=== PATIENT | female | born 1970 | race Two or more races ===

== ENCOUNTER 2021-12-13 16:29 | Emergency (ER) | payer BC ==
[~2021-12-13] VITALS: Ht 157.5 cm; Wt 134.5 kg
[2021-12-13] MEDS ORDERED: FAMOTIDINE 20 MG/2 ML VIAL IVP ONE (20:00)
[2021-12-13] MEDS ORDERED: fentaNYL PF VIAL 100 MCG/2 ML VIAL IVP ONE (20:00)
[2021-12-13 20:12] LABS: BILIRUBIN,URINE NEGATIVE (NEG); CLARITY,URINE CLEAR; COLOR,URINE YELLOW; NITRITE,URINE NEGATIVE (NEG); PROTEIN,URINE NEGATIVE (NEG-TRACE); UROBILINOGEN,URINE 0.2 mg/dL (0.2 mg/dL)
[2021-12-13 20:12] LABS: BASO # 0.1 x10^3/uL (0.0-0.2); BASO % 1 % (0-3); EOS # 0.2 x10^3/uL (0.0-0.7); EOS % 2 % (0-3); HEMATOCRIT 44.7 % (36.0-47.0); HEMOGLOBIN 14.7 g/dL (12.0-15.5); LYMPH # 3.9 x10^3/uL (1.0-4.8); LYMPH % 41 % (24-48); MEAN CORPUSCULAR HEMOGLOBIN 29 pg (25-35); MEAN CORPUSCULAR HGB CONC 33 g/dL (31-37); MEAN CORPUSCULAR VOLUME 88 fL (79-100); MONO # 0.6 x10^3/uL (0.0-1.1); MONO % 7 % (0-9); NEUT # 4.7 x10^3/uL (1.8-7.7); NEUT % 50 % (31-73); PLATELET COUNT 336 x10^3/uL (140-400); RED BLOOD COUNT 5.07 x10^6/uL (3.50-5.40); RED CELL DISTRIBUTION WIDTH 14.2 % (11.5-14.5); WHITE BLOOD COUNT 9.5 x10^3/uL (4.0-11.0)
[2021-12-13 20:17] LABS: BACTERIA,URINE FEW /HPF (0-FEW); RBC,URINE 0 /HPF (0-2)
[2021-12-13 20:27] LABS: CREATININE 0.8 mg/dL (0.6-1.0); GFR 75.9; POTASSIUM 3.7 mmol/L (3.5-5.1)
[2021-12-13] MEDS ORDERED: IOHEXOL 300 MG/ML 100ML VIAL. IV ONE (20:30)
[2021-12-13 20:33] LABS: ALBUMIN 3.7 g/dL (3.4-5.0); ALBUMIN/GLOBULIN RATIO 0.7 (1.0-1.7); TOTAL BILIRUBIN 0.4 mg/dL (0.2-1.0); TOTAL PROTEIN 8.9 g/dL (6.4-8.2)
[2021-12-13] MEDS ORDERED: CONTRAST GIVEN. MC PRN (20:45)
--- NOTE | 2021-12-13 21:46 | RAD ---
EXAM: CT Abdomen and Pelvis with IV contrast CLINICAL HISTORY: Reason: abd pain / Spl. Instructions: OMNI 300 INJ. 75 MLS / History: . COMPARISON: none TECHNIQUE: Helical CT of the abdomen and pelvis was performed following the administration of intrave nous contrast. Axial, coronal and sagittal reformatted images were generated. PQRS compliance statement - One or more of the following individualized dose reduction techniques wer e utilized for this study: 1. Automated exposure control 2. Adjustment of the mA and/or kV according to patient size 3. Use of iterative reconstruction technique FINDINGS: Lower Chest: Visualized lung bases are clear. Heart size is normal. No pericardial effusion. Abdomen and Pelvis: There is mild hepatic steatosis. No focal hepatic abnormality. The gallbladder, spleen, adrenals, as are unremarkable. Kidneys are symmetric in size with normal parenchymal enhancement. No nephrolithias is or hydroureteronephrosis. Stomach is unremarkable. The small and large bowel is predominantly decompressed of obstruction or fo timothy inflammation. The appendix is normal. No free intra-abdominal air or free fluid. No pathologicall y enlarged abdominal or pelvic adenopathy. Vasculature is normal in course and caliber. Urinary bladder is decompressed precluding complete evaluation. Normal uterus is present. There is a hypoattenuating 2.8 cm cystic structure with increased attenuation peripherally. Attenuation of the h ypoattenuating component measures out of soft tissue. The left adnexa is unremarkable. No free pelvic fluid. There is a small to moderate-sized fat-containing umbilical hernia with periphe ral calcifications likely representing areas of prior fat necrosis. Bones: No acute or suspicious osseous abnormalities. IMPRESSION: 1. No definite acute abdominal or pelvic process. 2. 2.8 cm cystic structure in the right adnexa likely represents a dominant cyst or physiologic folli melanie. Recommend further evaluation with pelvic ultrasound. Electronically signed by: David Blanc DO (12/13/2021 9:44 PM) [facility]
--- NOTE | 2021-12-13 21:49 | PHYS DOC ---
Past Medical History Additional Past Medical Histor: abdominal hernia Past Surgical History: Smoking Status: Never Smoker Alcohol Use: None General Adult EDM: Chief Complaint: ABDOMINAL PAIN HPI: HPI: Patient is a 51 year old female presenting to the ED today complaining of a 4 out of 10 pain around her umbilical hernia, symptoms began 2 days ago but she states she has had the hernia for about 6 years. Patient denies any fever, nausea, vomiting or diarrhea. States the pain is only when she pushes on the hernia or when she touches her abdomen. Denies anything specifically relieving the pain. Review of Systems: Review of Systems: Constitutional: Denies fever or chills. [] Eyes: Denies change in visual acuity. [] HENT: Denies nasal congestion or sore throat. [] Respiratory: Denies cough or shortness of breath. [] Cardiovascular: Denies chest pain or edema. [] GI: Reports abdominal pain, denies nausea, vomiting, bloody stools or diarrhea. [] : Denies dysuria. [] Musculoskeletal: Denies back pain or joint pain. [] Integument: Denies rash. [] Neurologic: Denies headache, focal weakness or sensory changes. [] Psychiatric: Denies depression or anxiety. [] Heart Score: C/O Chest Pain: N/A Risk Factors: Risk Factors: DM, Current or recent (<one month) smoker, HTN, HLP, family history of CAD, obesity. Risk Scores: Score 0 - 3: 2.5% MACE over next 6 weeks - Discharge Home Score 4 - 6: 20.3% MACE over next 6 weeks - Admit for Clinical Observation Score 7 - 10: 72.7% MACE over next 6 weeks - Early Invasive Strategies Current Medications: Current Medications Medications (Trade) Dose Ordered Sig/Rodriguez Start Time Stop Time Status Last Admin Dose Admin Famotidine (Pepcid Vial) 20 mg 1X ONCE 12/13/21 20:00 12/13/21 20:40 DC 12/13/21 20:52 20 MG Fentanyl Citrate (Fentanyl 2ml Vial) 50 mcg 1X ONCE 12/13/21 20:00 12/13/21 20:40 DC 12/13/21 20:52 50 MCG Info (CONTRAST GIVEN -- Rx MONITORING) 1 each PRN DAILY PRN 12/13/21 20:45 12/15/21 20:44 Iohexol (Omnipaque 300 Mg/ml) 75 ml 1X ONCE 12/13/21 20:30 12/13/21 20:40 DC 12/13/21 20:42 75 ML Allergies: Allergies: Allergies Coded Allergies Type Severity Reaction Last Updated Verified No Known Drug Allergies 12/13/21 No Physical Exam: PE: Umbilical Constitutional: Well developed, well nourished, no acute distress, non-toxic appearance. [] HENT: Normocephalic, atraumatic, bilateral external ears normal, oropharynx moist, no oral exudates, nose normal. [] Eyes: PERRLA, EOMI, conjunctiva normal, no discharge. [] Neck: Normal range of motion, no tenderness, supple, no stridor. [] Cardiovascular:Heart rate regular rhythm, no murmur [] Lungs & Thorax: Bilateral breath sounds clear to auscultation [] Abdomen: Obese abdomen. Easily reducible umbilical hernia noted on exam with some tenderness during exam. Bowel sounds normal, soft, no right upper quadrant or right lower quadrant tenderness, no masses, no pulsatile masses. [] Skin: Warm, dry, no erythema, no rash. [] Back: No tenderness, no CVA tenderness. [] Extremities: No tenderness, no cyanosis, no clubbing, ROM intact, no edema. [] Neurologic: Alert and oriented X 3, normal motor function, normal sensory function, no focal deficits noted. [] Psychologic: Affect normal, judgement normal, mood normal. [] Current Patient Data: Labs: Laboratory Tests Test 12/13/21 19:52 12/13/21 20:02 White Blood Count 9.5 x10^3/uL (4.0-11.0) Red Blood Count 5.07 x10^6/uL (3.50-5.40) Hemoglobin 14.7 g/dL (12.0-15.5) Hematocrit 44.7 % (36.0-47.0) Mean Corpuscular Volume 88 fL (79-100) Mean Corpuscular Hemoglobin 29 pg (25-35) Mean Corpuscular Hemoglobin Concent 33 g/dL (31-37) Red Cell Distribution Width 14.2 % (11.5-14.5) Platelet Count 336 x10^3/uL (140-400) Neutrophils (%) (Auto) 50 % (31-73) Lymphocytes (%) (Auto) 41 % (24-48) Monocytes (%) (Auto) 7 % (0-9) Eosinophils (%) (Auto) 2 % (0-3) Basophils (%) (Auto) 1 % (0-3) Neutrophils # (Auto) 4.7 x10^3/uL (1.8-7.7) Lymphocytes # (Auto) 3.9 x10^3/uL (1.0-4.8) Monocytes # (Auto) 0.6 x10^3/uL (0.0-1.1) Eosinophils # (Auto) 0.2 x10^3/uL (0.0-0.7) Basophils # (Auto) 0.1 x10^3/uL (0.0-0.2) Sodium Level 138 mmol/L (136-145) Potassium Level 3.7 mmol/L (3.5-5.1) Chloride Level 98 mmol/L (98-107) Carbon Dioxide Level 30 mmol/L (21-32) Anion Gap 10 (6-14) Blood Urea Nitrogen 10 mg/dL (7-20) Creatinine 0.8 mg/dL (0.6-1.0) Estimated GFR (Cockcroft-Gault) 75.9 BUN/Creatinine Ratio 13 (6-20) Glucose Level 98 mg/dL (70-99) Calcium Level 9.0 mg/dL (8.5-10.1) Total Bilirubin 0.4 mg/dL (0.2-1.0) Aspartate Amino Transferase (AST) 16 U/L (15-37) Alanine Aminotransferase (ALT) 29 U/L (14-59) Alkaline Phosphatase 113 U/L (46-116) Total Protein 8.9 g/dL (6.4-8.2) H Albumin 3.7 g/dL (3.4-5.0) Albumin/Globulin Ratio 0.7 (1.0-1.7) L Lipase 95 U/L (73-393) Urine Collection Type Unknown Urine Color Yellow Urine Clarity Clear Urine pH 5.0 (<5.0-8.0) Urine Specific Omega 1.010 (1.000-1.030) Urine Protein Negative mg/dL (NEG-TRACE) Urine Glucose (UA) Negative mg/dL (NEG) Urine Ketones (Stick) 40 mg/dL (NEG) Urine Blood Negative (NEG) Urine Nitrite Negative (NEG) Urine Bilirubin Negative (NEG) Urine Urobilinogen Dipstick 0.2 mg/dL (0.2 mg/dL) Urine Leukocyte Esterase Trace (NEG) Urine RBC 0 /HPF (0-2) Urine WBC 1-4 /HPF (0-4) Urine Squamous Epithelial Cells Mod /LPF Urine Bacteria Few /HPF (0-FEW) Urine Mucus Slight /LPF Laboratory Tests 12/13/21 19:52 Laboratory Tests 12/13/21 19:52 Vital Signs: Vital Signs Date Time Temp Pulse Resp B/P (MAP) Pulse Ox O2 Delivery O2 Flow Rate FiO2 12/13/21 20:52 Room Air 12/13/21 20:16 79 133/80 (97) 96 12/13/21 19:45 16 12/13/21 17:26 98.0 98.0 EKG: EKG: [] Radiology/Procedures: Radiology/Procedures: PROCEDURE: CT ABD PELV W/ IV CONTRST ONLY EXAM: CT Abdomen and Pelvis with IV contrast CLINICAL HISTORY: Reason: abd pain / Spl. Instructions: OMNI 300 INJ. 75 MLS / History: . COMPARISON: none TECHNIQUE: Helical CT of the abdomen and pelvis was performed following the administration of intravenous contrast. Axial, coronal and sagittal reformatted images were generated. PQRS compliance statement - One or more of the following individualized dose reduction techniques were utilized for this study: 1. Automated exposure control 2. Adjustment of the mA and/or kV according to patient size 3. Use of iterative reconstruction technique FINDINGS: Lower Chest: Visualized lung bases are clear. Heart size is normal. No pericardial effusion. Abdomen and Pelvis: There is mild hepatic steatosis. No focal hepatic abnormality. The gallbladder, spleen, adrenals, as are unremarkable. Kidneys are symmetric in size with normal parenchymal enhancement. No nephrolithiasis or hydroureteronephrosis. Stomach is unremarkable. The small and large bowel is predominantly decompressed of obstruction or focal inflammation. The appendix is normal. No free intra- abdominal air or free fluid. No pathologically enlarged abdominal or pelvic adenopathy. Vasculature is normal in course and caliber. Urinary bladder is decompressed precluding complete evaluation. Normal uterus is present. There is a hypoattenuating 2.8 cm cystic structure with increased attenuation peripherally. Attenuation of the hypoattenuating component measures out of soft tissue. The left adnexa is unremarkable. No free pelvic fluid. There is a small to moderate-sized fat-containing umbilical hernia with peripheral calcifications likely representing areas of prior fat necrosis. Bones: No acute or suspicious osseous abnormalities. IMPRESSION: 1. No definite acute abdominal or pelvic process. 2. 2.8 cm cystic structure in the right adnexa likely represents a dominant cyst or physiologic follicle. Recommend further evaluation with pelvic ultrasound. Electronically signed by: Rodriguez Blanc DO (12/13/2021 9:44 PM) [facility] DICTATED and SIGNED BY: RODRIGUEZ BLANC DO DATE: 12/13/21 [id number] []PROCEDURE: PELVIS ULTRASOUND EXAM: ULTRASOUND PELVIS 12/13/2021 INDICATION: Reason: abd pain right adnexa cyst. / Spl. Instructions: / History: . COMPARISON: None available. TECHNIQUE: Transabdominal sonography was performed. FINDINGS: Uterus measures 7.2 x 4.8 x 3.6 cm. No focal uterine mass. Endometrial complex is normal thickness for age measuring 6 mm. Right ovary measures 3.9 x 3.1 x 2.7 cm. Left ovary measures 3.1 x 2.0 x 1.7 cm. There is a right ovarian cyst measuring up to 2.8 cm. Normal-appearing follicles on the left. Normal color flow to both ovaries. No free fluid. IMPRESSION: 1. No acute sonographic abnormality. 2. There is a 2.8 cm right ovarian cyst. Normal appearing follicles on the left. Electronically signed by: Yoni Robbins MD (12/14/2021 12:06 AM) [facility] [place] DICTATED and SIGNED BY: YONI ROBBINS MD DATE: 12/14/21 [id number] Course & Med Decision Making: Course & Med Decision Making Pertinent Labs and Imaging studies reviewed. (See chart for details) This is a 51-year-old female patient presented to the ED today complaining of umbilical hernia pain, symptoms began 2 days ago. Has had the hernia for 6 y ears UA, CBC, CMP with no acute findings. CT of the abdomen and pelvis was negative for any acute findings, noted for a 2.8 cm cystic structure in the right adnexa likely represents a dominant cyst or physiologic follicle. Recommend further evaluation with pelvic ultrasound. Pelvic ultrasound- no acute sonographic abnormality, a 2.8 cm right ovarian cyst. Normal appearing follicles on the left. Discharged to home. Provided OB for follow-up. Follow-up with PCP. Provided general surgeon for umbilical hernia Emliy Disclaimer: Emily Disclaimer: This electronic medical record was generated, in whole or in part, using a voice recognition dictation system. Departure Departure Impression: Primary Impression: Umbilical hernia Qualified Codes: K42.9 - Umbilical hernia without obstruction or gangrene Additional Impressions: Abdominal pain Qualified Codes: R10.33 - Periumbilical pain Right ovarian cyst Disposition: HOME / SELF CARE / HOMELESS Condition: STABLE Referrals: UNKNOWN PCP NAME (PCP) KO MATHEWS MD Follow-up for the hernia YONI BROWN MD follow up for the ovarian cyst Patient Instructions: Hernia, Ovarian Cyst, [id number] Additional Instructions: You were evaluated in the emergency room, your CT of the abdomen and pelvis as well as ultrasound were negative for any acute findings. We have a right ovarian cyst that can be followed up as an outpatient with the provided MACHINE BOOKKEEPER. We provided you a general surgeon to follow-up for your hernia. KILLIAN LE TRAFFIC COORDINATOR Dec 13, 2021 21:49
--- NOTE | 2021-12-14 00:08 | RAD ---
EXAM: ULTRASOUND PELVIS 12/13/2021 INDICATION: Reason: abd pain right adnexa cyst. / Spl. Instructions: / History: . COMPARISON: None available. TECHNIQUE: Transabdominal sonography was performed. FINDINGS: Uterus measures 7.2 x 4.8 x 3.6 cm. No focal uterine mass. Endometrial complex is normal thickness fo r age measuring 6 mm. Right ovary measures 3.9 x 3.1 x 2.7 cm. Left ovary measures 3.1 x 2.0 x 1.7 cm. There is a right ova luke cyst measuring up to 2.8 cm. Normal-appearing follicles on the left. Normal color flow to both o varies. No free fluid. IMPRESSION: 1. No acute sonographic abnormality. 2. There is a 2.8 cm right ovarian cyst. Normal appearing follicles on the left. Electronically signed by: Yoni Robbins MD (12/14/2021 12:06 AM) [facility]
[2021-12-14 00:16] VITALS: BP 137/79
== END 2021-12-14 01:20 | disposition home or self-care (01) ==
LOC: ER 16:29
DX: K42.9 Umbilical hernia without obstruction or gangrene (principal); N83.201 Unspecified ovarian cyst, right side; Z98.890 Other specified postprocedural states
CPT/HCPCS: 36415; 74177; 76856; 80053; 81001; 83690; 85025; 87086; 96374; 96375; 99285; J3010; J3490; Q9967